=== PATIENT | female | born 1960 | race Caucasian/White ===

== ENCOUNTER → 2017-03-15 | Outpatient (CLI) | payer MEDICAID | LOC: BRMIMAGING 14:41 | PROVIDERS: ATTEND Surgery | DX: Z13.820 Encounter for screening for osteoporosis (principal); M85.80 Other specified disorders of bone density and structure, unspecified site; C50.111 Malignant neoplasm of central portion of right female breast ==

== ENCOUNTER 2017-08-23 12:02 | Day surgery (SDC) | payer MEDICAID ==
[2017-08-23] MEDS ORDERED: LIDOCAINE 1% 2 ML INJ ID PRN (12:23)
[2017-08-23] MEDS ORDERED: LR 1,000 ML IV ONE (12:23)
[2017-08-23] MEDS ORDERED: LIDOCAINE 1% 300 MG/30 ML SDV ONE (12:37)
[2017-08-23] MEDS ORDERED: BUPIVACAINE 0.5% 30 ML SDV ONE (12:38)
[2017-08-23] MEDS ORDERED: MIDAZOLAM 2 MG/2 ML VIAL ONE (12:43)
--- NOTE | 2017-08-23 12:47 | PDHPUP ---
History & Physical Update H&P update statement: This history and physical update is based on an assessment of the patient which was completed after admission or registration (within 24 hours), but prior to the surgery/procedure. H&P update: H&P reviewed & patient examined, no change in patient's condition since H&P completed
[2017-08-23] MEDS ORDERED: MIDAZOLAM 2 MG/2 ML VIAL IVP ONE (12:51)
--- NOTE | 2017-08-23 12:52 | PDANEPAE ---
ANE History of Present Illness here for breast biopsy ANE Past Medical History - Cardiovascular History Hx Hypertension: No Hx Arrhythmias: No Hx Chest Pain: No Hx Coronary Artery / Peripheral Vascular Disease: No Hx CHF / Valvular Disease: No Hx Palpitations: No - Pulmonary History Hx COPD: No Hx Asthma/Reactive Airway Disease: No Hx Recent Upper Respiratory Infection: No Hx Oxygen in Use at Home: No Hx Sleep Apnea: No Sleep Apnea Screening Result - Last Documented: Negative - Neurologic History Hx Cerebrovascular Accident: No Hx Seizures: No Hx Dementia: No - Endocrine History Hx Diabetes: No - Renal History Hx Renal Disorders: No - Liver History Hx Hepatic Disorders: No - Neurological & Psychiatric Hx Hx Neurological and Psychiatric Disorders: No - Cancer History Hx Cancer: Yes Cancer History Comment: breast cancer. lymph nodes - Congenital Disorder History Hx Congenital Disorders: No - GI History Hx Gastrointestinal Disorders: No Gastrointestinal History Comment: constipation - Other Health History Other Health History: neg - Chronic Pain History Chronic Pain: No - Surgical History Prior Surgeries: alia mastectomy & 12 lymph nodes. alia reconstruction. 2009 R shoulder surgery. left neck lymph node removed. polyps on voice larynx removed ANE Review of Systems Review of systems is: negative Review of Systems: - Exercise capacity Exercise capacity: <4 METS, >=4 METS METS (RN): 5 METS ANE Patient History - Allergies Allergies/Adverse Reactions: oxycodone HCl [From OxyContin] Allergy (Verified 08/22/17 10:15) Itching Penicillins Allergy (Verified 08/22/17 10:15) Hives - Home Medications Home medications: home medication list seen and reviewed Home Medications: Herbals/Supplements -Info Only 1 ea PO DAILY 03/17/16 [Last Taken 08/20/17] Multivitamins [Multivitamin (*)] 1 each PO DAILY 03/17/16 [Last Taken 08/21/17] - NPO status NPO Status: no food or drink >8 hours NPO Since - Liquids (Date): 08/23/17 NPO Since - Liquids (Time): 08:30 NPO Since - Solids (Date): 08/22/17 NPO Since - Solids (Time): 21:00 - Anes Hx Anes Hx: no prior problems - Smoking Hx Smoking Status: Never smoked - Family Anes Hx Family Hx Anesthesia Complications: n/a ANE Labs/Vital Signs - Vital Signs Vital Signs: reviewed preoperatively; see RN documention for details Blood Pressure: 111/60 Heart Rate: 86 Respiratory Rate: 20 O2 Sat (%): 96 Height: 171.45 cm Weight: 65.771 kg ANE Physical Exam - Airway Neck exam: FROM Mallampati Score: Class 1 - Pulmonary Pulmonary: no respiratory distress - Cardiovascular Cardiovascular: regular rate and rhythym - ASA Status ASA Status: I ANE Anesthesia Plan Anesthesia Plan: GA w LMA
[2017-08-23] MEDS ORDERED: fentaNYL 100 MCG/2 ML INJ ONE (13:08)
[2017-08-23] MEDS ORDERED: LR 500 ML IV PRN (13:21)
[2017-08-23] MEDS ORDERED: ALBUTEROL 3 ML DEYVIAL IH PRN (13:21)
[2017-08-23] MEDS ORDERED: NALOXONE HCL 0.4 MG/ML INJ IVP PRN (13:21)
[2017-08-23] MEDS ORDERED: DEXAMETHASONE 4 MG/ML VIAL IVP PRN (13:21)
[2017-08-23] MEDS ORDERED: PROMETHAZINE HCL 25 MG/ML INJ IVP PRN (13:21)
[2017-08-23] MEDS ORDERED: ONDANSETRON 4 MG/2 ML VIAL IVP PRN (13:21)
[2017-08-23] MEDS ORDERED: fentaNYL 100 MCG/2 ML INJ IVP PRN (13:21)
[2017-08-23] MEDS ORDERED: HYDROCODONE/APAP 5/325 TAB PO PRN ×2 (13:21→14:53)
[2017-08-23] MEDS ORDERED: ACETAMINOPHEN 500 MG TAB PO PRN (13:21)
[2017-08-23 14:21] VITALS: TEMP 97.7
[2017-08-23] MEDS ORDERED: ONDANSETRON DISINTEGRATING 4 MG TAB PO PRN (14:53)
--- NOTE | 2017-08-23 14:57 | POSTOPPROG ---
Post Op Note Date of Operation: 08/23/17 Surgeon: Hawk Stewart Anesthesia: LMA Pre-op Diagnosis: right breast mass x2 Post-op Diagnosis: same Procedure: excisional bx Findings: upper and right lateral scar lesions Inf/Abcess present in the surg proc area at time of surgery?: No EBL: Minimal Specimen(s): upper and lower bx to path
[2017-08-23 15:06] VITALS: PULSE 58; RESP 17
[2017-08-23 15:18] VITALS: BP 117/64; O2SAT 97
--- NOTE | 2017-08-23 21:28 | GOP ---
[f rep st] OPERATIVE REPORT DATE OF OPERATION: SURGEON: Hawk Stewart MD ANESTHESIA: General LMA anesthesia. ANESTHESIOLOGIST: Dr. Erickson Corona. PREOPERATIVE DIAGNOSIS: Right breast mass x2. POSTOPERATIVE DIAGNOSIS: PROCEDURE PERFORMED: Excisional biopsy of 2 breast masses on the right. FINDINGS: SPECIMENS: Nodules to pathology. INDICATIONS: This is a 56-year-old patient who presented 2 years ago with right breast cancer, ERPR positive, HER2 equivalent, with 2 separate foci. It was stage III. She has had a definitive surgica l procedure, did not undergo conventional chemotherapy radiation, and has had reconstruction with imp lants. There are 2 nodules over the right breast implant, which are concerning for recurrent disease versus scar tissue. Biopsies of these are performed for diagnosis. DESCRIPTION OF PROCEDURE: Patient was brought into the operating room. After induction of general L MA anesthesia, in supine position, her chest was prepped with chlorhexidine and draped sterilely. Ti me-out procedure was performed according to institutional standards. Local anesthetic was infused in skin and subcutaneous tissues above the nodules, and 2 separate incisions were made sharply. Sharp dissection was carried out through this dissection to ensure no thermal injury to the implant. The n odules go right down to the implant. These were taken off with careful dissection. The thin pectora l muscle is cauterized judiciously; and after insuring hemostasis, the areas were closed in layers us ing 3-0 Vicryl and 4-0 Monocryl. Dermabond was applied. The patient was awakened, and LMA removed. She was taken to recovery room in stable condition. The medial area of pain in her left chest was i nterrogated with ultrasound. There was no sign of any area to biopsy. This is concerning for recurr ent cancer, but nothing is seen today. We will discuss this with further possibility for imaging if the nodules are otherwise negative. Copy requested to: Dr. Elena Vigil /[id number]/MODL
== END 2017-08-23 15:45 | disposition home or self-care (01) ==
LOC: FSGY 12:02
PROVIDERS: ATTEND Surgery
PROC: 0HBT0ZX Excision of Right Breast, Open Approach, Diagnostic (ICD-10-PCS; principal; 2017-08-23 13:00)
DX: N63.10 Unspecified lump in the right breast, unspecified quadrant (principal); Z85.3 Personal history of malignant neoplasm of breast; Z90.11 Acquired absence of right breast and nipple; Z98.82 Breast implant status
CPT/HCPCS: J2250; J3010

== ENCOUNTER → 2017-10-11 | Outpatient (CLI) | payer MEDICAID ==
[~2017-10-11] MED LIST: LIDOCAINE 1% 300 MG/30 ML SDV ONE
== END ==
LOC: FIMAGING 13:44
PROVIDERS: ATTEND Surgery
PROC: 0W993ZZ Drainage of Right Pleural Cavity, Percutaneous Approach (ICD-10-PCS; principal; 2017-10-11)
DX: J90 Pleural effusion, not elsewhere classified (principal); Z85.3 Personal history of malignant neoplasm of breast; Z88.0 Allergy status to penicillin

== ENCOUNTER 2017-11-22 11:29 | Day surgery (SDC) | payer MEDICAID ==
[2017-11-22] MEDS ORDERED: LIDOCAINE 1% 300 MG/30 ML SDV ONE (11:41)
[2017-11-22] MEDS ORDERED: HEPARIN 1000 UNIT/1 ML MDV ONE (11:41)
[2017-11-22] MEDS ORDERED: BUPIVACAINE 0.25% 30 ML SDV ONE (11:41)
[2017-11-22] MEDS ORDERED: LR 1,000 ML IV ONE (11:42)
--- NOTE | 2017-11-22 12:48 | PDANEPAE ---
ANE Past Medical History - Cardiovascular History Hx Hypertension: No Hx Arrhythmias: No Hx Chest Pain: No Hx Coronary Artery / Peripheral Vascular Disease: No Hx CHF / Valvular Disease: No Hx Palpitations: No - Pulmonary History Hx COPD: No Hx Asthma/Reactive Airway Disease: No Hx Recent Upper Respiratory Infection: No Hx Oxygen in Use at Home: No Hx Sleep Apnea: No Sleep Apnea Screening Result - Last Documented: Negative Pulmonary History Comment: recent sob. malignant pleural effusions- currently - Neurologic History Hx Cerebrovascular Accident: No Hx Seizures: No Hx Dementia: No - Endocrine History Hx Diabetes: No Obesity: no - Renal History Hx Renal Disorders: No - Liver History Hx Hepatic Disorders: No - Neurological & Psychiatric Hx Hx Neurological and Psychiatric Disorders: No - Cancer History Hx Cancer: Yes Cancer History Comment: breast cancer. lymph nodes. malignant pleural effusions currently - Congenital Disorder History Hx Congenital Disorders: No - GI History Hx Gastrointestinal Disorders: Yes Gastrointestinal History Comment: constipation - Other Health History Other Health History: wears glasses - Chronic Pain History Chronic Pain: No - Surgical History Prior Surgeries: 08/23/17 right excisional breast biopsy with Pat. alia mastectomy and reconstruction with She. 2009 R shoulder surgery. left neck lymph node removed. polyps on voice larynx removed ANE Review of Systems Review of systems is: negative Review of Systems: - Exercise capacity METS (RN): 4 METS ANE Patient History - Allergies Allergies/Adverse Reactions: oxycodone HCl [From OxyContin] Allergy (Verified 11/21/17 14:06) Itching Penicillins Allergy (Verified 11/21/17 14:06) Hives - Home Medications Home Medications: Herbals/Supplements -Info Only 03/17/16 [Last Taken 11/20/17] Multivitamins [Multivitamin (*)] 03/17/16 [Last Taken 11/20/17] - NPO status NPO Since - Liquids (Date): 11/22/17 NPO Since - Liquids (Time): 09:45 NPO Since - Solids (Date): 11/21/17 NPO Since - Solids (Time): 19:30 - Smoking Hx Smoking Status: Never smoked - Family Anes Hx Family Hx Anesthesia Complications: none ANE Labs/Vital Signs - Vital Signs Blood Pressure: 114/57 Heart Rate: 71 Respiratory Rate: 16 O2 Sat (%): 96 Height: 171.45 cm Weight: 63.503 kg ANE Physical Exam - Airway Neck exam: FROM Mallampati Score: Class 1 Mouth exam: normal dental/mouth exam - Pulmonary Pulmonary: no respiratory distress - Cardiovascular Cardiovascular: regular rate and rhythym - ASA Status ASA Status: II ANE Anesthesia Plan Anesthesia Plan: GA w LMA
[2017-11-22] MEDS ORDERED: fentaNYL 100 MCG/2 ML INJ ONE (13:56)
[2017-11-22] MEDS ORDERED: PROPOFOL 200 MG/20 ML VIAL ONE (13:56)
[2017-11-22] MEDS ORDERED: ONDANSETRON 4 MG/2 ML VIAL ONE (14:00)
[2017-11-22] MEDS ORDERED: DEXAMETHASONE 4 MG/ML VIAL ONE (14:00)
[2017-11-22] MEDS ORDERED: LIDOCAINE 2% 5 ML SDV ONE (14:01)
[2017-11-22] MEDS ORDERED: MIDAZOLAM 2 MG/2 ML VIAL IVP ONE (14:04)
--- NOTE | 2017-11-22 14:23 | PDHPUP ---
History & Physical Update H&P update statement: This history and physical update is based on an assessment of the patient which was completed after admission or registration (within 24 hours), but prior to the surgery/procedure. H&P update: H&P reviewed & patient examined, changes noted H&P changes: port placement in left chest for Herceptin
[2017-11-22] MEDS ORDERED: ALBUTEROL 3 ML DEYVIAL IH PRN (15:14)
[2017-11-22] MEDS ORDERED: HYDROCODONE/APAP 5/325 TAB PO PRN ×2 (15:14→15:49)
[2017-11-22] MEDS ORDERED: NALOXONE HCL 0.4 MG/ML INJ IVP PRN (15:14)
[2017-11-22] MEDS ORDERED: ONDANSETRON 4 MG/2 ML VIAL IVP PRN (15:14)
[2017-11-22] MEDS ORDERED: ACETAMINOPHEN 500 MG TAB PO PRN (15:14)
[2017-11-22] MEDS ORDERED: fentaNYL 100 MCG/2 ML INJ IVP PRN (15:14)
[2017-11-22] MEDS ORDERED: HYDROmorphONE/DILAUDID 1 MG/ML INJ IVP PRN (15:14)
[2017-11-22] MEDS ORDERED: PROMETHAZINE HCL 25 MG/ML INJ IVP PRN (15:14)
--- NOTE | 2017-11-22 15:14 | POSTANESTH ---
Post Anesthetic Evaluation Cardiovascular Status: Normal, Stable Respiratory Status: Normal, Stable Level of Consciousness/Mental Status: Can Participate in Eval, Mildly Sleepy, Arousable Pain Control: Adequate, Prn Tx Ordered Nausea/Vomiting Control: Adequate, Prn Tx Ordered Complications Possibly Related to Anesthesia: None Noted
[2017-11-22] MEDS ORDERED: ONDANSETRON DISINTEGRATING 4 MG TAB PO PRN (15:49)
--- NOTE | 2017-11-22 15:51 | POSTOPPROG ---
Post Op Note Date of Operation: 11/22/17 Surgeon: Hawk Stewart Vascular Physician: dirk Anesthesiologist: Heidy Anesthesia: LMA Pre-op Diagnosis: breast cancer Post-op Diagnosis: same Procedure: L SCV port placement Inf/Abcess present in the surg proc area at time of surgery?: No EBL: Minimal
[2017-11-22 17:14] VITALS: BP 127/68
--- NOTE | 2017-11-23 17:38 | GOP ---
[f rep st] OPERATIVE REPORT DATE OF OPERATION: 11/22/2017 SURGEON: Hawk Stewart MD ANESTHESIA: General LMA anesthesia was used. There were no complications. ANESTHESIOLOGIST: Dr. Henrry Moody. PREOPERATIVE DIAGNOSIS: Metastatic breast cancer. POSTOPERATIVE DIAGNOSIS: Metastatic breast cancer. PROCEDURE PERFORMED: Left subclavian port placement. FINDINGS: INDICATIONS: This is a 56-year-old woman who presented with metastatic breast cancer and right pleur al effusion for Port-A-Cath placement for adjuvant therapy, possible thoracentesis. After discussion of thoracentesis with the patient, she has declined at this time and is only here for a left-sided P ort-A-Cath placement. DESCRIPTION OF PROCEDURE: Patient was brought to the operating room. After induction of anesthesia, her chest was prepped and draped with chlorhexidine in normal sterile fashion. Time-out procedure w as performed according to institutional standards. Local anesthetic was infused in the skin and subc utaneous tissues of the chest wall, and the subclavian vein was cannulated after 2 passes with an 18- gauge needle. Seldinger technique was used to confirm and maintain access with fluoroscopy. A pocke t was then created above her left breast implant, above the pectoral muscle, and an MRI/CT-safe Power Port was then placed into the lateral aspect of the chest tissue. This was secured in place laterall y using 3-0 PDS and the port catheter was tunneled from the pocket site to the neck site, truncated, introduced through the obturator introducer sheath, which was then peeled away. The catheter was con firmed to be in good position without any signs of pneumothorax on postoperative chest x-ray. Needle , instrument, and sponge counts were verified to be correct. There was good blood draw and flush. T he catheter being secure, the skin was reapproximated using 4-0 Monocryl at the insertion site and th e pocket site. Dermabond was applied. The patient was then awakened and LMA removed. She was taken to the recovery room in stable condition. No immediate complications. /[id number]/MODL
== END 2017-11-22 17:29 | disposition home or self-care (01) ==
LOC: FSGY 11:29
PROVIDERS: ATTEND Surgery
PROC: 0JH60XZ Insertion of Tunneled Vascular Access Device into Chest Subcutaneous Tissue and Fascia, Open Approach (ICD-10-PCS; principal; 2017-11-22 12:45)
PROC: B5171ZZ Fluoroscopy of Left Subclavian Vein using Low Osmolar Contrast (ICD-10-PCS; principal; 2017-11-22 12:45)
PROC: 02HV33Z Insertion of Infusion Device into Superior Vena Cava, Percutaneous Approach (ICD-10-PCS; principal; 2017-11-22 12:45)
DX: C50.911 Malignant neoplasm of unspecified site of right female breast (principal); J91.0 Malignant pleural effusion; I83.893 Varicose veins of bilateral lower extremities with other complications; N81.6 Rectocele
CPT/HCPCS: C1788; J1100; J1642; J1644; J2250; J2405; J2704; J3010

== ENCOUNTER 2018-06-10 16:35 | Emergency (ER) | payer MEDICAID ==
--- NOTE | 2018-06-10 16:53 | EDPHY ---
H & P Stated Complaint: Finished Chemo cycles, fluid retention, SOB Time Seen by Provider: 06/10/18 16:52 HPI/ROS: CHIEF COMPLAINT: Dyspnea, concerned about recurrent pleural effusion HISTORY OF PRESENT ILLNESS: The patient has a history of breast cancer. She presents the emergency department with dyspnea and a sensation that she has recurrent right pleural effusion. The patient has required thoracentesis in the past. She is currently anticoagulated with Xarelto. The patient denies any fever, cough or congestion. She denies any asymmetric calf pain or swelling. The patient denies any additional acute complaints. She currently is receiving immunotherapy for treatment of her disease. Patient reports that her symptoms are dyspnea are mild to moderate in nature. REVIEW OF SYSTEMS: A comprehensive 10 point review of systems is otherwise negative aside from elements mentioned in the history of present illness. Source: Patient - Personal History Current Tetanus/Diphtheria Vaccine: Unsure - Medical/Surgical History Hx Asthma: No Hx Chronic Respiratory Disease: No Hx Diabetes: No Hx Cardiac Disease: No Hx Renal Disease: No Hx Cirrhosis: No Hx Alcoholism: No Hx HIV/AIDS: No Hx Splenectomy or Spleen Trauma: No Other PMH: breast cancer, - Social History Smoking Status: Never smoked - Physical Exam Exam: General Appearance: Alert, no distress Eyes: Pupils equal and round no pallor or injection ENT, Mouth: Mucous membranes moist Respiratory: Decreased breath sounds right lung field, port noted to left anterior chest wall Cardiovascular: Regular rate and rhythm Gastrointestinal: Abdomen is soft and nontender, no masses, bowel sounds normal Neurological: 5/5 strength noted all 4 extremities Skin: Warm and dry, no rashes Musculoskeletal: Neck is supple nontender Extremities: symmetrical, full range of motion Psychiatric: Patient is oriented X 3, there is no agitation Constitutional: Initial Vital Signs Temperature (C) 36.3 C 06/10/18 16:43 Heart Rate 70 06/10/18 16:43 Respiratory Rate 18 06/10/18 16:43 Blood Pressure 135/68 H 06/10/18 16:43 O2 Sat (%) 98 06/10/18 16:43 O2 Delivery Mode Room Air Allergies/Adverse Reactions: oxycodone HCl [From OxyContin] Allergy (Verified 06/10/18 16:42) Itching Penicillins Allergy (Verified 06/10/18 16:42) Hives Home Medications: Medication Instructions Recorded Herbals/Supplements -Info Only 03/17/16 Multivitamins [Multivitamin (*)] 03/17/16 Lidocaine 5% [Lidoderm 5% Patch] 1 ea TD DAILY #12 patch 06/10/18 Medical Decision Making - Diagnostics Imaging Results: Imaging Impressions Chest X-Ray 06/10/18 16:56 Impression: Small subpulmonic right pleural effusion. ED Course/Re-evaluation: The patient presents to the ED with complaints of some right-sided chest discomfort and dyspnea. The patient was concerned about the possibility of a recurrent pleural effusion however a chest x-ray demonstrates only a very small effusion which is not amenable to thoracentesis. The patient is currently anticoagulated and I doubt pulmonary embolism as a presentation of her symptoms today. The patient did receive a mg of Ativan for anxiety. Screening laboratory testing is unremarkable. She specifically has no evidence of leukocytosis or neutropenia. The patient was seen in consultation by her surgeon Dr. Stewart in the emergency department. The patient will be discharged home at this point time. She is scheduled to see her oncologist tomorrow. The patient has been advised to use Tylenol as needed for pain management. Differential Diagnosis: Differential diagnosis considered includes pleural effusion, pneumonia, pneumothorax, herpes zoster, empyema, infected implant - Data Points Laboratory Results: Laboratory Results 06/10/18 17:30 06/10/18 17:30 06/10/18 06/10/18 06/10/18 17:30 17:30 14:51 WBC 6.09 10^3/uL 10^3/uL (3.80-9.50) RBC 4.50 10^6/uL 10^6/uL (4.18-5.33) Hgb 13.6 g/dL g/dL (12.6-16.3) Hct 39.0 % % (38.0-47.0) MCV 86.7 fL fL (81.5-99.8) MCH 30.2 pg pg (27.9-34.1) MCHC 34.9 g/dL g/dL (32.4-36.7) RDW 12.7 % % (11.5-15.2) Plt Count 234 10^3/uL 10^3/uL (150-400) MPV 9.9 fL fL (8.7-11.7) Neut % (Auto) 55.4 % % (39.3-74.2) Lymph % (Auto) 33.3 % % (15.0-45.0) [place] % (Auto) 9.5 % % (4.5-13.0) Eos % (Auto) 1.3 % % (0.6-7.6) Baso % (Auto) 0.3 % % (0.3-1.7) Nucleat RBC Rel Count 0.0 % % (0.0-0.2) Absolute Neuts (auto) 3.37 10^3/uL 10^3/uL (1.70-6.50) Absolute Lymphs (auto) 2.03 10^3/uL 10^3/uL (1.00-3.00) Absolute Monos (auto) 0.58 10^3/uL 10^3/uL (0.30-0.80) Absolute Eos (auto) 0.08 10^3/uL 10^3/uL (0.03-0.40) Absolute Basos (auto) 0.02 10^3/uL 10^3/uL (0.02-0.10) Absolute Nucleated RBC 0.00 10^3/uL 10^3/uL (0-0.01) Immature Gran % 0.2 % % (0.0-1.1) Immature Gran # 0.01 10^3/uL 10^3/uL (0.00-0.10) Sodium 133 mEq/L L mEq/L (135-145) Potassium 3.7 mEq/L mEq/L (3.5-5.2) Chloride 98 mEq/L mEq/L (97-110) Carbon Dioxide 25 mEq/l mEq/l (22-31) Anion Gap 10 mEq/L mEq/L (6-14) BUN 18 mg/dL mg/dL (7-23) Creatinine 0.7 mg/dL mg/dL (0.6-1.0) Estimated GFR > 60 Glucose 83 mg/dL mg/dL (70-100) Calcium 9.5 mg/dL mg/dL (8.5-10.4) Total Bilirubin 1.6 mg/dL H mg/dL (0.1-1.4) AST 53 IU/L H IU/L (14-46) ALT 71 IU/L H IU/L (9-52) Alkaline Phosphatase 71 IU/L IU/L (38-126) Total Protein 6.7 g/dL g/dL (6.3-8.2) Albumin 4.3 g/dL g/dL (3.5-5.0) Urine Color PALE YELLOW Urine Appearance CLEAR Urine pH 6.0 (5.0-7.5) Ur Specific [place] 1.009 (1.002-1.030) Urine Protein NEGATIVE (NEGATIVE) Urine Ketones NEGATIVE (NEGATIVE) Urine Blood 1+ H (NEGATIVE) Urine Nitrate NEGATIVE (NEGATIVE) Urine Bilirubin NEGATIVE (NEGATIVE) Urine Urobilinogen NEGATIVE EU EU (0.2-1.0) Ur Leukocyte Esterase NEGATIVE (NEGATIVE) Urine RBC 1-3 /hpf /hpf (0-3) Urine WBC 1-3 /hpf /hpf (0-3) Ur Epithelial Cells NONE SEEN /lpf /lpf (NONE-1+) Urine Glucose NEGATIVE (NEGATIVE) Medications Given: Discontinued Medications Lorazepam (Ativan Injection) 0.5 mg IVP EDNOW ONE Stop: 06/10/18 17:49 Last Admin: 06/10/18 17:55 Dose: 0.5 mg Ondansetron HCl (Zofran) 4 mg IVP EDNOW ONE Stop: 06/10/18 17:49 Last Admin: 06/10/18 17:55 Dose: 4 mg Departure - Departure Disposition: Home, Routine, Self-Care Clinical Impression: Pleurisy Condition: Good Instructions: Pleurisy (ED) Additional Instructions: 1. Please follow-up with Oncology as scheduled. 2. Please return to the ED for markedly worsening symptoms or other concerns. 3. Your laboratory testing and chest x-ray are all reassuring. 4. Tylenol as needed for pain management. 5. Lidocaine patches as prescribed Referrals: Brianda Whitman MD [Medical Doctor] - As per Instructions
[2018-06-10] MEDS ORDERED: ONDANSETRON 4 MG/2 ML VIAL ONE (17:40)
[2018-06-10] MEDS ORDERED: LORazepam 2 MG/ML INJ IVP ONE (17:48)
[2018-06-10] MEDS ORDERED: ONDANSETRON 4 MG/2 ML VIAL IVP ONE (17:48)
[2018-06-10 18:01] LABS: PLATELET COUNT 234 10^3/uL (150-400)
[2018-06-10 18:51] VITALS: BP 126/56
== END 2018-06-10 19:00 | disposition home or self-care (01) ==
DX: R09.1 Pleurisy (principal); Z85.3 Personal history of malignant neoplasm of breast; Z79.01 Long term (current) use of anticoagulants
CPT/HCPCS: 96374; J1642; J2060; J2405

== ENCOUNTER → 2018-06-11 | Outpatient (CLI) | payer MEDICAID ==
[~2018-06-11] MED LIST changes: +IOPAMIDOL (ISOVUE 370) 100 ML BTL IV ONE; -LIDOCAINE 1% 300 MG/30 ML SDV ONE
== END ==
LOC: CIMAGING 14:41
PROVIDERS: ATTEND Nurse Practitioner
DX: C79.51 Secondary malignant neoplasm of bone (principal); C50.411 Malignant neoplasm of upper-outer quadrant of right female breast; R59.1 Generalized enlarged lymph nodes; J90 Pleural effusion, not elsewhere classified
CPT/HCPCS: 71260-PO; 74177-PO; Q9967

== ENCOUNTER → 2018-06-12 | Outpatient (CLI) | payer MEDICAID ==
[~2018-06-12] MED LIST changes: -IOPAMIDOL (ISOVUE 370) 100 ML BTL IV ONE; +LIDOCAINE 1% 300 MG/30 ML SDV ONE
== END ==
LOC: FIMAGING 15:36
PROVIDERS: ATTEND Surgery
PROC: 0W993ZZ Drainage of Right Pleural Cavity, Percutaneous Approach (ICD-10-PCS; principal; 2018-06-12)
DX: J91.0 Malignant pleural effusion (principal)

== ENCOUNTER → 2018-07-01 | Outpatient (CLI) | payer MEDICAID ==
[~2018-07-01] MED LIST changes: +GADOBUTROL 10 ML VIAL IVP ONE; -LIDOCAINE 1% 300 MG/30 ML SDV ONE
== END ==
LOC: FIMAGING 09:43
PROVIDERS: ATTEND Internal Medicine Hematology & Oncology
DX: Z13.89 Encounter for screening for other disorder (principal); C50.411 Malignant neoplasm of upper-outer quadrant of right female breast; Z17.0 Estrogen receptor positive status [ER+]
CPT/HCPCS: A9585